=== PATIENT | female | born 1965 | race American Indian/Alaskan Native ===

== ENCOUNTER 2017-07-23 09:28 | Outpatient (CLI) | payer BC ==
--- NOTE | 2017-07-23 10:35 | XRay Report ---
LEFT SHOULDER: Shoulder pain. Routine views demonstrate normal bony and soft tissue structures with normal joint alignment of the shoulder. IMPRESSION: Normal study.
== END 2017-07-23 09:29 | disposition home or self-care (01) ==
LOC: SPVIMAG 09:28
PROVIDERS: ATTEND Orthopaedic Surgery Sports Medicine
DX: M25.512 Pain in left shoulder (principal)